=== PATIENT | female | born 1955 | race Caucasian/White ===

== ENCOUNTER → 2018-04-30 | Outpatient (CLI) | payer BC, OTHER | END | disposition home or self-care (01) | LOC: RAH 08:14 | PROVIDERS: ATTEND Physical Medicine & Rehabilitation | DX: M47.26 Other spondylosis with radiculopathy, lumbar region (principal); R60.9 Edema, unspecified | CPT/HCPCS: 72148 ==

== ENCOUNTER → 2019-09-19 | Outpatient (CLI) | payer MEDICARE | END | disposition home or self-care (01) | LOC: RAH 11:04 | PROVIDERS: ATTEND Physical Medicine & Rehabilitation | DX: M25.511 Pain in right shoulder (principal) ==

== ENCOUNTER → 2020-02-07 | Outpatient (CLI) | payer MEDICARE | END | disposition home or self-care (01) | LOC: RAH 15:08 | PROVIDERS: ATTEND Physical Medicine & Rehabilitation | DX: M25.552 Pain in left hip (principal) | CPT/HCPCS: 73502 ==

== ENCOUNTER 2020-06-26 09:11 | Day surgery (SDC) | payer MEDICARE ==
[~2020-06-26] VITALS: Ht 167.6 cm; Wt 113.4 kg
[2020-06-26] VITALS (7 sets, daily range): BP systolic 128–157; BP diastolic 59–93
[~2020-06-26 09:11] MED LIST: 0.9%NACL 1000ML 1,000 ML IV ONE; ALPR0.5T PO; ASCO500T20 PO; EZET10TA48 PO; GABA300C PO; LEVO200C2 PO; LEVO50TA11 PO; MAGN250T2 PO; MONT-39 PO; SPIR50TA5 PO; TORS20TA4 PO; VITAMIN D PO
[2020-06-26] MEDS ORDERED: VENL225T3 PO (10:51)
[2020-06-26] MEDS ORDERED: CARV3.12 PO (10:51)
[2020-06-26] MEDS ORDERED: ESOM40CA PO (10:51)
[2020-06-26] MEDS ORDERED: TADA20TA70 PO (10:51)
[2020-06-26] MEDS ORDERED: ATOR40TA69 PO (10:51)
[2020-06-26] MEDS ORDERED: FAMOTIDINE PO (10:51)
[2020-06-26] MEDS ORDERED: FERR324T4 PO (10:51)
[2020-06-26] MEDS ORDERED: FEBU40TA3 PO (10:51)
[2020-06-26] MEDS ORDERED: [UNRECOGNIZED DRUG - CODE] PO (10:51)
[2020-06-26] MEDS ORDERED: DILT360C32 PO (10:51)
[2020-06-26] MEDS ORDERED: PROPOFOL 10 MG/ML 20ML VIAL IV ONE (11:56)
[2020-06-26] MEDS ORDERED: GLYCOPYRROLATE 1 MG/5 ML SYRINGE ONE (11:56)
== END 2020-06-26 13:20 | disposition home or self-care (01) ==
LOC: DAH 09:11
PROVIDERS: ATTEND Internal Medicine
DX: K59.04 Chronic idiopathic constipation (principal); Z20.822 Contact with and (suspected) exposure to COVID-19; K21.00 Gastro-esophageal reflux disease with esophagitis, without bleeding; K29.50 Unspecified chronic gastritis without bleeding; K63.5 Polyp of colon; K31.7 Polyp of stomach and duodenum; K31.89 Other diseases of stomach and duodenum; E11.22 Type 2 diabetes mellitus with diabetic chronic kidney disease; I12.9 Hypertensive chronic kidney disease with stage 1 through stage 4 chronic kidney disease, or unspecified chronic kidney disease; N18.30 Chronic kidney disease, stage 3 unspecified; J44.9 Chronic obstructive pulmonary disease, unspecified; E78.5 Hyperlipidemia, unspecified; G47.30 Sleep apnea, unspecified; E03.9 Hypothyroidism, unspecified; E78.00 Pure hypercholesterolemia, unspecified; Z98.890 Other specified postprocedural states; Z90.710 Acquired absence of both cervix and uterus; Z86.010 Personal history of colon polyps; Z87.891 Personal history of nicotine dependence; Z79.890 Hormone replacement therapy; Z79.82 Long term (current) use of aspirin; Z79.4 Long term (current) use of insulin; Z79.899 Other long term (current) drug therapy; Z72.89 Other problems related to lifestyle
CPT/HCPCS: 43239; 43251; 45380; 45385; 82948 ×2; 87426; 88305; 88342; 93005; A4215; A4221; A4222; A4223; A4606; A4620; A4649; A4663; J2704; J3490; J7030; 43255

== ENCOUNTER → 2020-10-15 | Outpatient (CLI) | payer MEDICARE ==
[~2020-10-15] MED LIST changes: -0.9%NACL 1000ML 1,000 ML IV ONE; +ATOR40TA69 PO; +CARV3.12 PO; +DILT360C32 PO; +ESOM40CA PO; +FAMOTIDINE PO; +FEBU40TA3 PO; +FERR324T4 PO; -LEVO50TA11 PO; -MONT-39 PO; +MONT10TA32 PO; +TADA20TA48 PO; +VENL225T3 PO; +[UNRECOGNIZED DRUG - CODE] PO
== END | disposition home or self-care (01) ==
LOC: RAH 15:13
PROVIDERS: ATTEND Physical Medicine & Rehabilitation
DX: M53.3 Sacrococcygeal disorders, not elsewhere classified (principal)
CPT/HCPCS: 72220

== ENCOUNTER → 2024-01-22 | Outpatient (CLI) | payer MEDICARE ==
[~2024-01-22] MED LIST changes: +DILT360C24 PO; -DILT360C32 PO; -FEBU40TA3 PO; +FEBU40TA6 PO; -MAGN250T2 PO; +MAGN250T35 PO; +MONT-39 PO; -MONT10TA32 PO; -TADA20TA48 PO; +TADA20TA70 PO; +[UNRECOGNIZED DRUG - CODE] PO; -[UNRECOGNIZED DRUG - CODE] PO
== END | disposition home or self-care (01) ==
LOC: RAH 10:57
PROVIDERS: ATTEND Internal Medicine
DX: I65.23 Occlusion and stenosis of bilateral carotid arteries (principal); R42 Dizziness and giddiness; R26.89 Other abnormalities of gait and mobility; I25.10 Atherosclerotic heart disease of native coronary artery without angina pectoris
CPT/HCPCS: 70450; 93880

== ENCOUNTER → 2024-02-01 | Outpatient (CLI) | payer MEDICARE | END | disposition home or self-care (01) | LOC: RAH 13:43 | PROVIDERS: ATTEND Internal Medicine Cardiovascular Disease | DX: M79.662 Pain in left lower leg (principal); M79.661 Pain in right lower leg; R60.0 Localized edema | CPT/HCPCS: 93925; 93970 ==

== ENCOUNTER 2024-05-12 06:21 | Day surgery (SDC) | payer MEDICARE ==
[~2024-05-12] VITALS: Ht 167.6 cm; Wt 113.4 kg
[2024-05-12] VITALS (10 sets, daily range): BP systolic 125–150; BP diastolic 43–75; PULSE 65–78; RESP 15–18; TEMP 97.2–98.3
[~2024-05-12 06:21] MED LIST changes: +0.9%NACL 1000ML 1,000 ML IV ONE; -ASCO500T20 PO; +ASPI-1197 PO; +CHOL200059 PO; -DILT360C24 PO; +EMPA10TA PO; -ESOM40CA PO; -EZET10TA48 PO; +FAMO20TA8 PO; -FAMOTIDINE PO; -FEBU40TA6 PO; -FERR324T4 PO; +GABA-529 PO; -GABA300C PO; +INSULIN PUMP SQ; -LEVO200C2 PO; +LEVO200T10 PO; -MAGN250T35 PO; -TADA20TA70 PO; +TORS100T16 PO; -TORS20TA4 PO; -VITAMIN D PO; -[UNRECOGNIZED DRUG - CODE] PO
[2024-05-12] MEDS ORDERED: LIDOCAINE HCL 1% 20 ML VIAL ONE (08:38)
[2024-05-12] MEDS ORDERED: proPOFol 10 MG/ML 20ML VIAL IV ONE ×3 (08:38→09:05)
== END 2024-05-12 10:30 | disposition home or self-care (01) ==
LOC: ENDO 06:21 → DAH 06:21 → ENDO 10:30
PROVIDERS: ATTEND Internal Medicine Gastroenterology
DX: Z12.11 Encounter for screening for malignant neoplasm of colon (principal); D12.3 Benign neoplasm of transverse colon; K29.50 Unspecified chronic gastritis without bleeding; K74.60 Unspecified cirrhosis of liver; R13.10 Dysphagia, unspecified; Z86.0100 Personal history of colon polyps, unspecified; K21.9 Gastro-esophageal reflux disease without esophagitis; G47.30 Sleep apnea, unspecified; E66.01 Morbid (severe) obesity due to excess calories; E78.00 Pure hypercholesterolemia, unspecified; I12.9 Hypertensive chronic kidney disease with stage 1 through stage 4 chronic kidney disease, or unspecified chronic kidney disease; E11.22 Type 2 diabetes mellitus with diabetic chronic kidney disease; N18.9 Chronic kidney disease, unspecified; K21.00 Gastro-esophageal reflux disease with esophagitis, without bleeding; K64.0 First degree hemorrhoids; K57.30 Diverticulosis of large intestine without perforation or abscess without bleeding; I25.10 Atherosclerotic heart disease of native coronary artery without angina pectoris; E03.9 Hypothyroidism, unspecified; Z90.710 Acquired absence of both cervix and uterus; Z99.89 Dependence on other enabling machines and devices; Z88.0 Allergy status to penicillin; Z79.4 Long term (current) use of insulin; Z79.82 Long term (current) use of aspirin; Z79.899 Other long term (current) drug therapy
CPT/HCPCS: 45385; 43239; 43248; 82948; J7030; J2704 ×3; A4620; A4215 ×2; A4223; A4222; A4221; A4663; A4606; J3490